=== PATIENT | female | born 2000 | race Caucasian/White ===

== ENCOUNTER 2023-02-02 09:59 | Outpatient (CLI) | payer OTHER, SELFPAY ==
--- NOTE | 2023-02-08 12:16 | WPDHOLTEREM ---
Holter/Event Monitor Holter/Event Monitor Date of procedure: 02/02/23 Holter/Event Procedure: 48 Hr Holter Monitor Indications: Fatigue Conclusion: 1. 48 hour holter monitor on 02/02/23. 2. Underlying rhythm is sinus rhythm. HR range 40-152 bpm; average HR 84 bpm. HR at 40 bpm was at 03:36; HR at 152 bpm was at 07:02. 3. No premature supraventricular complexes. No supraventricular tachycardia. 4. There are 35 premature ventricular complexes. No ventricular tachycardia. 5. No sinoatrial or atrioventricular blocks. No significant pauses greater than 2 seconds. 6. No symptoms available for correlation.
== END 2023-02-02 10:00 | disposition home or self-care (01) ==
PROVIDERS: Visit Provider Nurse Practitioner Family
DX: R00.0 Tachycardia, unspecified (principal); R00.2 Palpitations; R53.83 Other fatigue
CPT/HCPCS: 93225; 93226